=== PATIENT | female | born 1995 | race Hispanic/Latino ===

== ENCOUNTER 2019-10-18 21:00 | Emergency (ER) | payer MEDICAID, OTHER ==
[2019-10-18] MEDS ORDERED: MAG HYDROX/AL HYDROX/SIMETH ES 30 ML SUSP UDCUP ONE (21:13)
[2019-10-18] MEDS ORDERED: LIDOCAINE HCL 2% VISCOUS 15 ML UDCUP ONE (21:13)
[2019-10-18 21:21] LABS: APPEARANCE,URINE Clear (CLEAR); BILIRUBIN,URINE Negative (NEGATIVE); COLOR,URINE Yellow (YELLOW); GLUCOSE, URINE (UA) Negative (NEGATIVE); KETONES,URINE Negative (NEGATIVE); LEUKOCYTE ESTERASE ,URINE Trace (NEGATIVE); NITRATE,URINE Negative (NEGATIVE); OCCULT BLOOD,URINE Negative (NEGATIVE); PH,URINE 6.5 (5.0-8.0); PROTEIN,URINE Negative (NEGATIVE)
[2019-10-18] MEDS ORDERED: ONDANSETRON ODT 4 MG TAB ONE (21:21)
[2019-10-18 21:28] LABS: BASOPHILS % (AUTO) 1.3 % (0.0-5.0); EOSINOPHILS % (AUTO) 1.9 % (0.0-8.0); HEMATOCRIT 38.7 % (36-48); LYMPHOCYTES % (AUTO) 31.4 % (21.0-51.0); MEAN CORPUSCULAR HEMOGLOBIN 30.9 pg (27.0-33.0); MEAN CORPUSCULAR HGB CONC 35.7 g/dL (32.0-36.0); MEAN CORPUSCULAR VOLUME 86.6 fL (79-99); MONOCYTES % (AUTO) 7.2 % (3.0-13.0); NEUTROPHILS % (AUTO) 58.1 % (40.0-77.0); PLATELET COUNT (AUTO) 306 K/uL (130-400); RED BLOOD CELL COUNT(AUTO) 4.47 MIL/uL (4.00-5.50); RED CELL DISTRIBUTION WIDTH 11.9 % (11.0-15.5); WHITE BLOOD COUNT (AUTO) 7.6 K/uL (4.8-10.8)
[2019-10-18 21:30] LABS: HCG,QUAL RESULT NEGATIVE (NEGATIVE)
[2019-10-18 21:38] LABS: POTASSIUM 3.8 mmol/L (3.5-5.1)
[2019-10-18 21:42] LABS: BACTERIA,URINE Rare /HPF (None Seen); MUCUS,URINE Few LPF (None Seen); RBC,URINE 0-1 /HPF (0-1); SQUAMOUS EPITHELIAL CELL,UR Few /HPF (0-2)
[2019-10-18 21:48] LABS: ALBUMIN 4.4 g/dL (3.5-5.0); BILIRUBIN,TOTAL 0.5 mg/dL (0.2-1.0); TOTAL PROTEIN, SERUM 7.9 g/dL (6.0-8.3)
== END 2019-10-18 22:42 | disposition home or self-care (01) ==
LOC: EDH 21:00
DX: K21.9 Gastro-esophageal reflux disease without esophagitis (principal); F41.9 Anxiety disorder, unspecified
CPT/HCPCS: 36415; 80053; 81001; 81025; 83690; 84702; 85025

== ENCOUNTER 2021-08-15 12:58 | Emergency (ER) | payer OTHER, SELFPAY ==
[~2021-08-15] VITALS: Ht 147.3 cm; Wt 38.1 kg
[2021-08-15 13:24] LABS: BASOPHILS % (AUTO) 0.5 % (0.0-5.0); EOSINOPHILS % (AUTO) 0.2 % (0.0-8.0); HEMATOCRIT 41.8 % (36-48); LYMPHOCYTES % (AUTO) 12.9 % (21.0-51.0); MEAN CORPUSCULAR HEMOGLOBIN 30.4 pg (27.0-33.0); MEAN CORPUSCULAR HGB CONC 34.9 g/dL (32.0-36.0); MEAN CORPUSCULAR VOLUME 86.9 fL (79-99); MONOCYTES % (AUTO) 7.2 % (3.0-13.0); NEUTROPHILS % (AUTO) 78.9 % (40.0-77.0); PLATELET COUNT (AUTO) 226 K/uL (130-400); RED BLOOD CELL COUNT(AUTO) 4.81 MIL/uL (4.00-5.50); RED CELL DISTRIBUTION WIDTH 11.7 % (11.0-15.5); WHITE BLOOD COUNT (AUTO) 6.1 K/uL (4.8-10.8)
[2021-08-15 13:29] LABS: APPEARANCE,URINE CLEAR (CLEAR); BILIRUBIN,URINE NEGATIVE (NEGATIVE); COLOR,URINE YELLOW (YELLOW); GLUCOSE, URINE (UA) NEGATIVE (NEGATIVE); HCG,QUAL RESULT NEGATIVE (NEGATIVE); KETONES,URINE NEGATIVE (NEGATIVE); LEUKOCYTE ESTERASE ,URINE NEGATIVE (NEGATIVE); NITRATE,URINE NEGATIVE (NEGATIVE); OCCULT BLOOD,URINE LARGE (NEGATIVE); PROTEIN,URINE NEGATIVE (NEGATIVE); UROBILINOGEN,URINE 0.2 mg/dL (0.2-1.0)
[2021-08-15 13:51] LABS: ALBUMIN 4.3 g/dL (3.5-5.0); CREATININE 0.7 mg/dL (0.5-1.5); POTASSIUM 3.1 mmol/L (3.5-5.1); TOTAL PROTEIN, SERUM 8.2 g/dL (6.0-8.3)
[2021-08-15] MEDS ORDERED: IBUPROFEN 600 MG TABLET PO ONE (14:00)
[2021-08-15 14:04] LABS: BACTERIA,URINE None Seen /HPF (None Seen); MUCUS,URINE Moderate LPF (None Seen); WBC,URINE None Seen /HPF (0-1)
[2021-08-15] MEDS ORDERED: IBUP-2070 PO (15:31)
[2021-08-15 15:41] VITALS: BP 116/75
== END 2021-08-15 15:40 | disposition home or self-care (01) ==
LOC: EDH 12:58
DX: R10.2 Pelvic and perineal pain (principal); Z20.822 Contact with and (suspected) exposure to COVID-19; Z79.1 Long term (current) use of non-steroidal anti-inflammatories (NSAID)
CPT/HCPCS: 36415; 76856; 80053; 81001; 81025; 85025; 87635; 99284; C9803

== ENCOUNTER 2024-04-08 17:12 | Emergency (ER) | payer SELFPAY ==
[~2024-04-08] VITALS: Ht 149.9 cm; Wt 54.4 kg
[~2024-04-08 17:12] MED LIST: IBUP-2070 PO
[2024-04-08] MEDS ORDERED: DIPH50 PO (18:14)
[2024-04-08] MEDS ORDERED: CEPH500B PO (18:14)
--- NOTE | 2024-04-08 18:15 | ERN ---
ED Note History of Present Illness Stated Complaint: INSECT STING Chief Complaint: Cellulitis Time Seen by MD: 17:14 Time Seen by Midlevel: 17:14 Dictation: The patient is a 28-year-old female with no past medical history who presents to the emergency department with complaints erythema to inner thigh after being stung by an insect yesterday. Patient reports she remove the insect sting but is unsure would, insect bite was. She reports she thinks it is a bee. Denies any fevers or shortness of breath. Allergies: Coded Allergies: No Known Allergies (Unverified Allergy, Unknown, 08/15/21) Home Meds Active Scripts Ibuprofen (Ibuprofen) 600 Mg Tablet, 600 MG PO Q6H PRN for PAIN, #30 TAB Prov:THEA GOOD MD 08/15/21 Past Medical History Past Medical History: No Pertinent History Surgical History: None Social History: Negative, Lives with family History: Not Applicable LMP: Mar 18, 2024 RN Note Reviewed/Agreed w/PFSH: Yes Review of System Dictation Constitutional: Negative for fever,chills, and weight loss Eyes: Negative for injury, pain,redness, and discharge ENT: Negative for injury,pain or swelling Cardiovascular: Negative for chest pain, palpitations, and edema Respiratory: Negative for shortness of breath, cough, and wheezing, Abdomen/GI: Negative for abdominal pain, nausea, vomiting, diarrhea, and constipation Back: Negative for injury and pain : Negative for injury, bleeding and discharge MS/Extremity: Negative for injury and deformity Skin: Negative for discoloration positive for rash Neuro: Negative for headache, weakness, numbness, tingling, and seizure Psych: Negative for suicide ideation, homicidal ideation, and hallucinations Initial Vital Sign VS Vital Signs Date Time Temp Pulse Resp B/P (MAP) Pulse Ox O2 Delivery O2 Flow Rate FiO2 04/08/24 17:42 99.3 98 16 109/64 100 Room Air 0 Physical Exam Dictation Vital Signs reviewed General Appearance: Alert, oriented x 3, no acute distress, well developed, nourished. Head and Face: non-traumatic. Eyes: PERRL, pink conjunctivas, eyelid no trauma, anterior chamber with arcus senilis. Ears: Pinnas intact and no signs of trauma or erythema ear canals clear and no discharge TM no erythema Nose: No discharge, no bleeding. Oropharynx: Mouth normal, tongue pink. pharynx clear,no erythema, tonsils no exudates, no abscesses noted, mucous membrane moist Neck: Supple, non-tender, no thyromegaly, no masses, no JVD, no bruits Breast:Deferred Chest:No tenderness, no crepitus, no paradoxical movement, no retractions Lungs:Clear, well-ventilated, symmetric, no rales, no wheezing, no rhonchi, no stridor, good breath sounds bilaterally Heart: Regular rate, regular rhythm, no murmur, no gallops Vascular: no peripheral edema, Abdomen: Soft, positive bowel sounds, nondistended, no guarding, nontender, no rebound, no masses no hepatomegaly, no splenomegaly, no Ruff's sign, no hernias. Rectal: Deferred Genital: Deferred Neurological: Normal speech, motor function intact, sensory function intact Musculoskeletal: Neck nontender, full range of motion, back nontender, full range of motion, Extremities: nontender, full range of motion Skin: Color pink, dry, no turgor, , no lacerations, no abrasions, no contusions. Erythemic to right inner thigh about 6 cm in diameter, swelling, no blisters or open wounds, warmth to touch Lymphatic: Deferred Results (Laboratory/Radiology) Labs Reviewed?: Yes ED Course ED Course Orders Procedure Category Date Status Time Diphenhydramine Hcl PHA 04/08/24 Complete (Benadryl Cap) 18:00 Famotidine 20mg Tab PHA 04/08/24 Complete (Pepcid 20mg Tab) 18:00 Dexamethasone 4mg/Ml PHA 04/08/24 Complete 1ml Vial (Dexametha 18:00 Ceftriaxone 1g Vial PHA 04/08/24 Complete (Rocephine 1g Inj) 18:00 Current Medications Medications (Trade) Dose Ordered Sig/Pawan Route PRN Reason Start Time Stop Time Status Last Admin Dose Admin Ceftriaxone Sodium (ROCEphine 1G INJ) 1 gm ONCE ONCE IM 04/08/24 18:00 04/08/24 18:04 DC Dexamethasone Sodium Phosphate (dexaMETHasone 4MG/ML 1ML VIAL) 6 mg ONCE ONCE IM 04/08/24 18:00 04/08/24 18:04 DC Diphenhydramine HCl (BENAdryl CAP) 25 mg ONCE ONCE PO 04/08/24 18:00 04/08/24 18:04 DC Famotidine (Pepcid 20mg Tab) 20 mg ONCE ONCE PO 04/08/24 18:00 04/08/24 18:04 DC Vital Signs Date Time Temp Pulse Resp B/P (MAP) Pulse Ox O2 Delivery O2 Flow Rate FiO2 04/08/24 17:42 99.3 98 16 109/64 100 Room Air 0 Medical Decision Making MDM The patient is a 28-year-old female with no past medical history who presents to the emergency department with complaints erythema to inner thigh after being stung by an insect yesterday. Patient reports she remove the insect sting but is unsure would, insect bite was. She reports she thinks it is a bee. Denies any fevers or shortness of breath. Patient reports up-to-date with Tdap Patient has symptoms consistent with a cellulitis. We will be treated as out patient with the antibiotics. Patient in no acute distress, nontoxic appearance. Differential diagnosis: Allergic reaction, infected insect wound, cellulitis Need for hospitalization: Patient does not meet criteria for hospitalization. There are no social concerns with this patient. DX & DISP Disposition: Discharge Departure Impression: Primary Impression: Infected insect bite Condition: Stable Scripts Diphenhydramine HCl (Benadryl) 50 Mg Cap 50 MG PO Q6H for itching/rash, #20 CAP 0 Refills Prov: CALE REED CARDIAC SURGEON 04/08/24 Cephalexin Monohydrate (Keflex) 500 Mg Cap 500 MG PO QID for 7 Days, #28 CAP Prov: CALE REED CARDIAC SURGEON 04/08/24 Additional Instructions: Please follow up with the primary doctor in 1-2 days. Take medications as prescribed. If symptoms worsen, you develop fevers swelling worsens please refer to ER or follow up with primary doctor in FOLLOW-UP WITH PRIMARY CARE PROVIDER IN 1 TO 2 DAYS. TAKE MEDICATIONS DIRECTED HERE IN THE EMERGENCY ROOM. OKAY TO CONTINUE HOME MEDICATIONS UNLESS OTHERWISE DISCUSSED DURING YOUR VISIT IN THE EMERGENCY ROOM TODAY. RETURN TO Y OUR NEAREST EMERGENCY ROOM IF SYMPTOMS WORSEN OR IF THERE IS NO IMPROVEMENT. CALL 911 IF YOU NEED IMMEDIATE ASSISTANCE. TAKE TYLENOL OR MOTRIN [id number] NEEDED AND IF NO CONTRAINDICATIONS ARE PRESENT. INCREASE ORAL HYDRATION. A WOUND CULTURE OR URINE CULTURE WAS ORDERED HERE IN THE EMERGENCY ROOM DEPARTMENT PLEASE FOLLOW-UP WITH PRIMARY CARE PROVIDER AND ADVISE THEM TO GET REPEAT PORTS FROM OUR FACILITY. IF YOU HAD ANY FELICIA WRAP/SPLINTS THAT WERE APPLIED HERE, PLEASE DO NOT REMOVE THEM UNTIL YOU SEE YOUR PRIMARY CARE OR SPECIALTY. Referrals: FELIPE PAULSON (PCP) Time of Disposition: 18:13 I have reviewed the case, and I agree with, Diagnosis and Plan CALE REED [facility] Apr 08, 2024 18:14
[2024-04-08] MEDS: dexaMETHasone SOD PHOSPHATE 4 MG/ML 1ML VIAL IM ONE (19:37)
[2024-04-08] MEDS: cefTRIAXone 1G VIAL IM ONE (19:38)
[2024-04-08] MEDS: FAMOTIDINE 20MG TAB PO ONE (19:38)
[2024-04-08] MEDS: DiphenhydrAMINE HCL 25 MG CAPSULE PO ONE (19:38)
[2024-04-08 19:44] VITALS: BP 106/28; PULSE 88; RESP 18; TEMP 99.4; O2SAT 98
--- NOTE | 2024-04-08 19:56 | NUR ---
CRITICAL CONSULT DONE AT THIS TIME
== END 2024-04-08 20:11 | disposition home or self-care (01) ==
LOC: EDH 17:12
DX: L08.89 Other specified local infections of the skin and subcutaneous tissue (principal); W57.XXXA Bitten or stung by nonvenomous insect and other nonvenomous arthropods, initial encounter
CPT/HCPCS: 99284; 96372 ×2; J1100; Q0163; J0696

== ENCOUNTER 2024-10-02 00:18 | Emergency (ER) | payer SELFPAY ==
[~2024-10-02] VITALS: Ht 149.9 cm; Wt 54.4 kg
[~2024-10-02 00:18] MED LIST changes: +CEPH500B PO; +DIPH50CA38 PO; +IBUP-1492 PO; -IBUP-2070 PO
[2024-10-02] MEDS: 0.9%NACL 1000ML 1,000 ML IV ONE (01:02)
--- NOTE | 2024-10-02 01:05 | ERN ---
ED Note History of Present Illness Stated Complaint: C/O HEADACHES,DIZZINESS ONSET MONDAY Chief Complaint: Headache Time Seen by MD: 00:20 Time Seen by Midlevel: 00:20 Dictation: The Patient is a 29-year-old female with no past medical history who presents to the emergency department with complaints occipital headache associated with nausea onset Monday. Patient denies any head trauma, fevers, upper respiratory symptoms. Denies any history of headaches. Patient reports she has not taking any medications for her headaches. Allergies: Coded Allergies: No Known Allergies (Unverified Allergy, Unknown, 08/15/21) Home Meds Active Scripts Diphenhydramine HCl (Benadryl) 50 Mg Cap, 50 MG PO Q6H for itching/rash, #20 CAP 0 Refills Prov:CALE REED CREATIVE ART THERAPIST 04/08/24 Cephalexin Monohydrate (Keflex) 500 Mg Cap, 500 MG PO QID for 7 Days, #28 CAP Prov:CALE REED CREATIVE ART THERAPIST 04/08/24 Ibuprofen (Ibuprofen) 600 Mg Tablet, 600 MG PO Q6H PRN for PAIN, #30 TAB Prov:THEA GOOD MD 08/15/21 Past Medical History Past Medical History: No Pertinent History Surgical History: None Social History: Negative, Lives with family History: Not Applicable LMP: Sep 13, 2024 RN Note Reviewed/Agreed w/PFSH: Yes Review of System Dictation Constitutional: Negative for fever,chills, and weight loss Eyes: Negative for injury, pain,redness, and discharge ENT: Negative for injury,pain or swelling Cardiovascular: Negative for chest pain, palpitations, and edema Respiratory: Negative for shortness of breath, cough, and wheezing, Abdomen/GI: Negative for abdominal pain, nausea, vomiting, diarrhea, and constipation Back: Negative for injury and pain : Negative for injury, bleeding and discharge MS/Extremity: Negative for injury and deformity Skin: Negative for rash, and discoloration Neuro: Negative for weakness, numbness, tingling, and seizure positive for headache Psych: Negative for suicide ideation, homicidal ideation, and hallucinations Initial Vital Sign VS Vital Signs Date Time Temp Pulse Resp B/P (MAP) Pulse Ox O2 Delivery O2 Flow Rate FiO2 10/02/24 00:20 98.1 113 20 115/64 100 Room Air 10/02/24 00:53 0 21 Physical Exam Dictation Vital Signs reviewed General Appearance: Alert, oriented x 3, no acute distress, well developed, nourished. Head and Face: non-traumatic. Eyes: PERRL, pink conjunctivas, eyelid no trauma, anterior chamber with arcus senilis. Ears: Pinnas intact and no signs of trauma or erythema ear canals clear and no discharge TM no erythema Nose: No discharge, no bleeding. Oropharynx: Mouth normal, tongue pink. pharynx clear,no erythema, tonsils no exudates, no abscesses noted, mucous membrane moist Neck: Supple, non-tender, no thyromegaly, no masses, no JVD, no bruits Breast:Deferred Chest:No tenderness, no crepitus, no paradoxical movement, no retractions Lungs:Clear, well-ventilated, symmetric, no rales, no wheezing, no rhonchi, no stridor, good breath sounds bilaterally Heart: Regular rate, regular rhythm, no murmur, no gallops Vascular: no peripheral edema, Abdomen: Soft, positive bowel sounds, nondistended, no guarding, nontender, no rebound, no masses no hepatomegaly, no splenomegaly, no Ruff's sign, no hernias. Rectal: Deferred Genital: Deferred Neurological: Normal speech, motor function intact, sensory function intact , upper extremities equal in strength, lower extremities equal in strength, no facial droop Musculoskeletal: Neck nontender, full range of motion, back nontender, full range of motion, Extremities: nontender, full range of motion Skin: Color pink, dry, no turgor, no rash, no lacerations, no abrasions, no c ontusions. Lymphatic: Deferred Results (Laboratory/Radiology) Laboratory/Radiology Laboratory Tests Test 10/02/24 01:30 White Blood Count 11.0 K/uL (4.8-10.8) H Red Blood Count 4.32 MIL/uL (4.00-5.50) Hemoglobin 13.7 g/dL (12.0-16.0) Hematocrit 39.3 % (36-48) Mean Corpuscular Volume 91.0 fL (79-99) Mean Corpuscular Hemoglobin 31.7 pg (27.0-33.0) Mean Corpuscular Hemoglobin Concent 34.9 g/dL (32.0-36.0) Red Cell Distribution Width 12.1 % (11.0-15.5) Platelet Count 337 K/uL (130-400) Mean Platelet Volume 9.4 fL (7.5-10.5) Immature Granulocyte % (Auto) 0.2 % (0-1) Neutrophils (%) (Auto) 65.7 % (40.0-77.0) Lymphocytes (%) (Auto) 24.9 % (21.0-51.0) Monocytes (%) (Auto) 7.2 % (3.0-13.0) Eosinophils (%) (Auto) 0.7 % (0.0-8.0) Basophils (%) (Auto) 1.3 % (0.0-5.0) Neutrophils # (Auto) 7.2 K/uL (1.8-7.7) Lymphocytes # (Auto) 2.7 K/uL (1.0-4.8) Monocytes # (Auto) 0.8 K/uL (0.1-1.0) Eosinophils # (Auto) 0.08 K/uL (0.00-0.70) Basophils # (Auto) 0.14 K/uL (0.00-0.20) Absolute Immature Granulocyte (auto 0.02 K/uL (0-1) Nucleated Red Blood Cells 0.0 % (0.0-0.19) Sodium Level 137 mmol/L (136-145) Potassium Level 3.2 mmol/L (3.5-5.1) L Chloride Level 100 mmol/L (101-111) L Carbon Dioxide Level 31 mmol/L (21-32) Blood Urea Nitrogen 15 mg/dL (7-18) Creatinine 0.7 mg/dL (0.5-1.0) Glomerular Filtration Rate Calc 121 mL/min (>90) Random Glucose 87 mg/dL (70-105) Total Calcium 9.1 mg/dL (8.5-10.1) Serum Test, Qualitative NEGATIVE (NEGATIVE) Labs Reviewed?: Yes ED Course ED Course Orders Procedure Category Date Status Time Cbc With Differential LAB 10/02/24 Complete 00:35 0.9%Nacl 1000ml (Ns PHA 10/02/24 Complete 1000ml) 01:00 Basic Metabolic Panel LAB 10/02/24 Complete 00:35 Acetaminophen 500mg PHA 10/02/24 Complete Tab (Tylenol 500mg T 01:00 Testing, LAB 10/02/24 Complete Serum Hcg 00:35 Potassium Bicarb/Cit PHA 10/02/24 Complete Ac 25meq (K-Lyte Ta 02:30 Current Medications Medications (Trade) Dose Ordered Sig/Pawan Route PRN Reason Start Time Stop Time Status Last Admin Dose Admin Acetaminophen (TYLenol 500MG TAB) 1,000 mg ONCE ONCE PO 10/02/24 01:00 10/02/24 01:01 DC 10/02/24 01:02 Potassium Bicarbonate (K-Lyte Tablet Eff 25 Meq Tablet.eff) 25 meq ONCE ONCE PO 10/02/24 02:30 10/02/24 02:31 DC 10/02/24 02:36 Sodium Chloride 1,000 ml @ 0 mls/hr ONCE ONCE IV 10/02/24 01:00 10/02/24 01:01 DC 10/02/24 01:02 Vital Signs Date Time Temp Pulse Resp B/P (MAP) Pulse Ox O2 Delivery O2 Flow Rate FiO2 10/02/24 00:53 98.1 95 18 127/78 100 Room Air* 0 21 10/02/24 00:20 98.1 113 20 115/64 100 Room Air Medical Decision Making MDM The Patient is a 29-year-old female with no past medical history who presents to the emergency department with complaints occipital headache associated with nausea onset Monday. Patient denies any head trauma, fevers, upper respiratory symptoms. Denies any history of headaches. Patient reports she has not taking any medications for her headaches. CBC showed mild leukocytosis, no anemia, chemistry showed mild hypochloremia, hypokalemia. On physical exam patient in no acute distress, nontoxic appearance, neurologically intact, stable vital signs. Patient will be disch arged to follow up with PCP. Differential diagnosis: Headache, dehydration, electrolyte imbalance Need for hospitalization: Patient does not meet criteria for hospitalization. There are no social concerns with this patient. DX & DISP Disposition: Discharge Departure Impression: Primary Impression: Headache Additional Impression: Mild dehydration Condition: Stable Additional Instructions: Your labs show you were slightly dehydrated, your potassium was low and it was replaced in the ER. Please follow up with your primary doctor in 1-2 days. If anything worsens please return to ER. FOLLOW-UP WITH PRIMARY CARE PROVIDER IN 1 TO 2 DAYS. TAKE MEDICATIONS DIRECTED HERE IN THE EMERGENCY ROOM. OKAY TO CONTINUE HOME MEDICATIONS UNLESS OTHERWISE DISCUSSED DURING YOUR VISIT IN THE EMERGENCY ROOM TODAY. RETURN TO YOUR NEAREST EMERGENCY ROOM IF SYMPTOMS WORSEN OR IF THERE IS NO IMPROVEMENT. CALL 911 IF YOU NEED IMMEDIATE ASSISTANCE. TAKE TYLENOL [id number] NEEDED AND IF NO CONTRAINDICATIONS ARE PRESENT. INCREASE ORAL HYDRATION. A WOUND CULTURE OR URINE CULTURE WAS ORDERED HERE IN THE EMERGENCY ROOM DEPARTMENT PLEASE FOLLOW-UP WITH PRIMARY CARE PROVIDER AND ADVISE THEM TO GET REPEAT PORTS FROM OUR FACILITY. IF YOU HAD ANY FELICIA WRAP/SPLINTS THAT WERE APPLIED HERE, PLEASE DO NOT REMOVE THEM UNTIL YOU SEE YOUR PRIMARY CARE OR SPECIALTY. Referrals: ARMANDO RAMÍREZ M.D. (PCP) Time of Disposition: 02:39 I have reviewed the case, and I agree with, Diagnosis and Plan CALE REED CREATIVE ART THERAPIST Oct 02, 2024 01:04
[2024-10-02 01:56] LABS: IMMATURE GRANULOCYTE ABSOLUTE 0.02 K/uL (0-1); NUCLEATED RED BLOOD CELLS 0.0 % (0.0-0.19); PLATELET COUNT (AUTO) 337 K/uL (130-400); RED BLOOD CELL COUNT(AUTO) 4.32 MIL/uL (4.00-5.50); RED CELL DISTRIBUTION WIDTH 12.1 % (11.0-15.5); WHITE BLOOD COUNT (AUTO) 11.0 K/uL (4.8-10.8)
[2024-10-02 02:07] LABS: CREATININE 0.7 mg/dL (0.5-1.0); GLOMERULAR FILTR. RATE CALC 121.0 mL/min (>90); GLUCOSE,RANDOM 87.0 mg/dL (70-105); SODIUM SERUM 137.0 mmol/L (136-145); UREA NITROGEN, BLOOD 15.0 mg/dL (7-18)
[2024-10-02 03:18] VITALS: BP 125/76; PULSE 97; RESP 18; TEMP 98.1; O2SAT 99
== END 2024-10-02 03:22 | disposition home or self-care (01) ==
LOC: EDH 00:18
DX: R51.9 Headache, unspecified (principal); E86.0 Dehydration; Z79.899 Other long term (current) drug therapy
CPT/HCPCS: 99283; 96374; 96361; 80048; 84703; 85025; 36415; J1885; J7030